=== PATIENT | female | born 1980 | race Caucasian/White ===

== ENCOUNTER 2025-03-16 23:20 | Emergency (ER) | payer MEDICAID, SELFPAY ==
[2025-03-16 23:42] VITALS: BP 135/88; PULSE 70; RESP 16; TEMP 36.8; O2SAT 96; BMI 27.4
[2025-03-17 01:32] VITALS: BP 107/67; PULSE 64; RESP 18; TEMP 36.7; O2SAT 99
--- OUTSIDE RECORDS SUMMARY | 2025-03-17 01:53 | XMS_ITS | Data Portability ---
Author Organization [facility], Allergy Address [address] [place] [phone] Care Team Providers Care Nurse Executive Name Role Phone BERTRANDERELDA Primary Care Provider Assessment No assessment recorded. Plan of Treatment Reminders Order Date Submit Date Provider Last Modified By Organization Details Last Modified Time Details Appointments None record ed. Lab None record ed. Referral None record ed. Procedures None record ed. Surgeries None record ed. Imaging None record ed. Medication Orders None record ed. Patient TargetsNo targets recorded. Patient InstructionsNo instructions recorded. Reason for Referral None Reported. 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 Medical Equipment None Reported. Allergies Allergen ID Allergen Name Allergen Category Reaction Reaction Severity Criticality Documentation Date Start Date Code Code System Note Provider Name and Address Organization Details Recorded Time [id number] clindamyc in Not available Not available Not available Not available 01/31/2025 2582 RxNorm Letha fox [facility] 5 15:11:59 Medications Name Sig Start Date Stop Date Status Note LastModified by Organization Details LastModified Time amoxicillin 500 mg capsule TAKE ONE CAPSULE BY MOUTH THREE TIMES A DAY active Not Available Not Available Not Available prednisone 20 mg tablet TAKE 2 TABLETS BY MOUTH EVERY DAY FOR 5 DAYS active Not Available Not Available No t Available lorazepam 1 mg tablet TAKE 1/2 TAB TO 1 TAB EVERY 4 HOURS NEEDED FOR ANXIETY. active Not Available Not Available No t Available propranolol 20 mg tablet TAKE 1 TABLET UP TO THREE TIMES A DAY NEEDED active Not Available Not Available No t Available fluticasone propionate 50 mcg/actuatio n nasal spray,suspen dank USE 1 SPRAY EVERY DAY INTO EACH NOSTRIL FOR 30 DAYS FOR NASAL CONGESTION/ ALTERED SMELL active Not Available Not Available No t Available loratadine 10 mg tablet TAKE 1 TABLET EVERY DAY BY ORAL ROUTE FOR 30 DAYS, FOR ITCH/ALLERG IES. active Not Available Not Available No t Available mometasone 0.1 % topical cream APPLY A THIN LAYER TO THE FACE BY TOPICAL ROUTE ONCE DAILY, NO MORE THAN 7 DAYS active Not Available Not Available No t Available Ventolin HFA 90 mcg/actuatio n aerosol inhaler INHALE 2 PUFFS EVERY 4 HOURS BY INHALATION ROUTE NEEDED active Not Available Not Available No t Available escitalopram 5 mg tablet TAKE 1 TABLET DAILY (5 MG) FOR 7 DAYS, IF NO SIDE EFFECTS THEN INCREASE TO 2 TABLETS DAILY (10 MG). active Not Available Not Available No t Available Vitals Date Recorded Body height Body mass index (BMI) Body weight Provider Name and Address Organization Details Last Updated DateTime 01/31/2025 162.56 cm 28.7 kg/m2 07486.93 g Letha Hutson MA - [facility] 01/31/2025 15:11:38 Social History None recorded. Functional Status None recorded. Mental Status None recorded. Family History Nothing Reported. Medical History Condition Response Anxiety Y Depression Y Gynecological HistoryNo gynecological history recorded. Obstetrics History GPAL:G 0 P 0 0 0 0 Past Encounters Encounter ID Performer Location Encounter Start Date Encounter Closed Date Diagnosis/Indication Diagnosis SNOMED-CT Code Diagnosis ICD10 Code Diagnosis Note [id number] ABA ORTEGA MD [facility] [address] [phone] 01/31/2025 14:48:52 01/31/2025 16:07:11 Sensory disorder of smell and/or taste 3775624337 103 R43.9 44-year-ol d female, former smoker, presents today for evaluation of altered sense of smell and taste. She reports that she can still smell foods like coffee but they are not as strong as they used to be and she previously had a very acute sense of smell. Around that time she did have a chemical exposure. She tolerated nasal endoscopy to the level of the middle meatus and I did not see any polyps. Nasal mucosa is mildly congested. She is subjective ly noted some dryness I did recommend using saline. I also gave her some informatio n on smell retraining . If the sense of smell worsens or does not seem to improve or she develops any new symptoms I have recommende d reassessme nt and considerat ion of imaging, but that her smell is intact just diminished suggest that the nerve is functionin g. Health Concerns Section Related Observation LastModified by Organization Detai ls LastModified Time None Recorded Concern Status LastModified by Organization Details LastModified Time None Recorded Advance Directives Directive None Recorded Payers Insurance Date Sequence Insurance Name Policy Number Policy Pak Covered Member ID Pak Member ID Guarantor Name 01/31/2025 2 [facility] Marcy Ivey Kershaw [id number] Marcy Ivey Kershaw 01/31/2025 1 [facility] Marcy Ivey Kershaw [id number] Marcy Ivey Kershaw Notes Date Note Type Note Provider Name and Address Organization Details Recorded Time 01/31/2025 text/html 44 yo F presents for evaluationAltered sense of smell and tastePreviously had very acute sense of smellFirst noted several months agoHad a laundry/ bleach smell just before noted loss of smell end of April 2024some things can be stronger than otherscan tell difference between salt and sugar waternose is drystopped smokingcould not taste cigarettebreathing feels right in her chest, thought to be stress/anxiety relatedno asthma knownno heartburnno allergiessome headaches, menses relatednot always hydratedno vision changes ABA ORTEGA MD [address] [place] [address],[place] [address], [place], [phone], [place] - [facility] 01/31/2025 16:59:42 OBGyn Episode No OBEpisode recorded.
[2025-03-17 02:06] LABS: MANUAL DIFF FLAG NO
[2025-03-17 02:07] LABS: Hematocrit 38.6 % (37.0-47.0); Hemoglobin 13.5 g/dl (12.0-16.0); Imm Gran Abs Auto 0.08 X10*3/uL (0.00-0.03); Imm Gran Pct Auto 0.4 % (0.0-0.4); Lymphocytes Absolute Auto 1.4 X10*3/uL (1.2-4.9); Mean Corpuscular HGB Conc 35.0 g/dl (31.0-35.0); Mean Corpuscular Hemoglobin 28.8 pg (27.0-33.0); Mean Corpuscular Volume 82.5 fL (80.0-98.0); NRBC Abs Auto 0.000 X10*3/uL (0.0-0.012); NRBC Pct Auto 0.0 /100WBC (0.0-0.2); Platelet Count 367 X10*3/uL (160-400); Red Blood Count 4.68 X10*6/uL (4.20-5.50); White Blood Count 18.8 X10*3/uL (4.8-10.8)
[2025-03-17 02:12] LABS: Appearance Urine Clear; Glucose Urine UA Negative (Negative); PH 5.5 (5.0-9.0); Specific Gravity - Urine 1.010 (1.005-1.025); UMIC TRIGGER UACC YES
[2025-03-17 02:29] LABS: Alanine Aminotransferase 16 U/L (0-31); Albumin Level 4.6 g/dL (3.5-5.0); Alkaline Phosphatase 64 U/L (39-117); Anion Gap 14 (12-20); Aspartate Amino Transferase 20 U/L (5-31); Blood Urea Nitrogen 12 mg/dL (9-16); Calcium 9.0 mg/dL (8.4-10.2); Carbon Dioxide 22 mmol/L (22-29); Chloride 109 mmol/L (96-108); Creatinine Clr Calc Pharmacy 101.5; Estimated Glomerular Filt Rate > 60; Potassium 4.6 mmol/L (3.3-5.1); Sodium 140 mmol/L (135-145); Total Protein 7.4 g/dL (6.5-8.0)
--- NOTE | 2025-03-17 04:46 | ED.FEMALEGU ---
HPI - Female Genitourinary General Chief complaint: Urogenital-Female Stated complaint: UTI? Time Seen by Provider: 03/17/25 03:53 Source: patient Mode of arrival: ambulatory Limitations: no limitations History of Present Illness ED Provider: Dr. Rohini Huston HPI Narrative: Patient comes to the emergency room complaining of left-sided flank pain intermittently for couple of days. Patient states that she has been having UTI symptoms for several days and now believes it is moving more towards the left kidney area. Patient complaining of dysuria, nausea and episodes of diaphoresis. Patient states that she has had kidney stones in the past. Patient denies fever chills Related Data Previous Rx's ?Medication ?Instructions ?Recorded levofloxacin 500 mg tablet 500 mg PO DAILY #7 tabs 03/17/25 Allergies Allergy/AdvReac Type Severity Reaction Status Date / Time clindamycin Allergy Dizziness Verified 03/16/25 23:46 Review of Systems Review of Systems: Constitutional : No Weight loss, No Fever, No Chills, No Night Sweats, No Fatigue, No Malaise ENT/Mouth : No Hearing loss, No Ear Pain, No Nasal Congestion, No Sinus Pain, No Hoarseness, No sore throat, No Rhinorrhea, No Swallowing Difficulty Eyes: No Eye Pain, No Swelling, No Redness, No Foreign Body, No Discharge, No Vision Changes Cardiovascular : No Chest Pain, No SOB, No Dyspnea on Exertion, No Orthopnea, No Edema, No Palpitations Respiratory : No Cough, No Sputum, No Wheezing, No Smoke Exposure, No Dyspnea Gastrointestinal : No Nausea, No Vomiting, No Diarrhea, No Constipation, No abdominal Pain, No Hematochezia, No Melena Genitourinary : no irregular bleeding, complaining of dysuria, bladder spasming, left-sided flank pain Musculoskeletal : No joint pain, No Myalgias, No Joint Swelling Skin : No Skin Lesions, No rash Neuro : No Weakness, No Numbness, No Paresthesias, No Loss of Consciousness, No Dizziness, No Headache Psych : No Anxiety/Panic, No Depression, No SI/HI/AH/VH, No Social Issues, Heme/Lymph: No Bruising, No Bleeding,No Lymphadenopathy Endocrine : No Polyuria, No Polydipsia, No Temperature Intolerance [facility] Past Medical History Medical History (Updated 03/17/25 @ 05:22 by Rohini Huston MD) Anxiety Ureterolithiasis Social History Social History Smoked in Last 30 Days: No Use of substances other than those prescribed or required for medical reasons: No Advance Directives: No Do you have a plan to hurt others: No Plan Physical Exam Exam: Exam: Appearance: Alert. Oriented X3. No acute distress. Calm Eyes: Pupils equal, round and reactive to light. ENT: Pharynx normal. Neck: Normal inspection. Neck supple. No lymph nodes noted. No crepitus CVS: Normal heart rate and rhythm. Pulses normal. Normal S1 and S2 Respiratory: No respiratory distress. Breath sounds normal. No Wheezing. No rales Abdomen: Soft , tenderness to palpation in suprapubic area, no rebound or guarding, mild CVA tenderness on the left Skin: Skin warm and dry. Normal skin color. Normal skin turgor. Extremities: No lower extremity edema. No Lacerations. No Rash Neuro: Oriented X 3. No motor deficit. No sensory deficit. Moving all extremities. No slurred speech. CN 2 through 12 grossly intact Psych: calm, cooperative, normal affect Vital Signs: Vital Signs: Last Vital Signs Temp 98.1 F 03/17/25 01:32 Pulse 64 03/17/25 01:32 Resp 18 03/17/25 01:32 BP 107/67 03/17/25 01:32 Pulse Ox 99 03/17/25 01:32 O2 Del Method Room Air 03/17/25 01:32 BMI result Body Mass Index 27.4 Course Course Course Narrative: Patient is currently taking nitrofurantoin for a UTI for the last couple of days. Patient states that the urinary discomfort is gradually radiating towards the left flank. Patient reports flank pain, dysuria, hematuria, nausea and episodes of diaphoresis. Patient has had kidney stones in the past and states that the pain is very similar. Medications Administered Discontinued Medications Generic Name Dose Route Start Last Admin Trade Name Freq PRN Reason Stop Dose Admin Sodium Chloride 1,000 mls @ 999 mls/hr 03/17/25 04:00 03/17/25 04:07 Ns IV 03/17/25 05:00 999 mls/hr .Q1H1M PHILLIP Administration Ketorolac Tromethamine 30 mg 03/17/25 04:42 03/17/25 04:53 Ketorolac Tromethamine 30 Mg/Ml Vial IVPUSH 03/17/25 04:43 Not Given ONCE ONE Ondansetron HCl 4 mg 03/17/25 04:42 03/17/25 04:53 Ondansetron Hcl 4 Mg/2 Ml Vial IVPUSH 03/17/25 04:43 Not Given ONCE ONE Medical Decision Making Medical Decision Making [facility] Narrative: My interpretation of white blood cell count 18.8, normal chemistry, hCG negative. Urinalysis shows a small amount of blood, leukocyte esterase, no significant abnormality in patient's urine. However, patient's seems to be taking currently Macrobid. I was informed by the patient's nurse that the patient is too anxious to go to CAT scan. We do not know if she has a kidney stone. Patient is too anxious to take any antibiotics. Patient was offered multiple different medications to help her with the anxiety, patient is too anxious to take anxiolytic medications Patient's BUN and creatinine remained within normal limits, unlikely that the stone is causing any obstruction. Overall, CAT scan and IV antibiotics was offered, patient too anxious to do either 1. New antibiotics have been sent to the patient's pharmacy. Differential Diagnosis Differential Diagnoses: The differential diagnosis associated with the presentation includes (UTI, pyelonephritis, musculoskeletal pain, anxiety) Admission/Observation Consideration of admission/observation: Escalation of care including admission/observation considered Lab Data [facility] Lab Attestation statement: I reviewed the patient's lab results. 03/17/25 02:03 03/17/25 02:03 Labs: Lab Results 03/17/25 03/17/25 Range/Units 02:03 02:07 WBC 18.8 H (4.8-10.8) X10*3/uL RBC 4.68 (4.20-5.50) X10*6/uL Hgb 13.5 (12.0-16.0) g/dl Hct 38.6 (37.0-47.0) % MCV 82.5 (80.0-98.0) fL MCH 28.8 (27.0-33.0) pg MCHC 35.0 (31.0-35.0) g/dl RDW 14.5 (11.0-16.0) % Plt Count 367 (160-400) X10*3/uL MPV 9.7 (9.4-12.3) fL Immature Gran % (Auto) 0.4 (0.0-0.4) % Neut % (Auto) 87.4 H (45-73) % Lymph % (Auto) 7.3 L (20-40) % [place] % (Auto) 4.5 (2-11) % Eos % (Auto) 0.1 (0-4) % Baso % (Auto) 0.3 (0-2) % Lymph # (Auto) 1.4 (1.2-4.9) X10*3/uL [place] # (Auto) 0.9 (0.1-1.2) X10*3/uL Eos # (Auto) 0.0 (0.0-0.4) X10*3/uL Baso # (Auto) 0.1 (0.0-0.2) X10*3/uL Abs Immat Gran (auto) 0.08 H (0.00-0.03) X10*3/uL Absolute Neuts (auto) 16.4 H (2.0-8.3) x10*3/uL Absolute Nucleated RBC 0.000 (0.0-0.012) X10*3/uL Nucleated RBC % (auto) 0.0 (0.0-0.2) /100WBC Sodium 140 (135-145) mmol/L Potassium 4.6 (3.3-5.1) mmol/L Chloride 109 H (96-108) mmol/L Carbon Dioxide 22 (22-29) mmol/L Anion Gap 14 (12-20) BUN 12 (9-16) mg/dL Creatinine 0.73 (0.5-1.4) mg/dL Estim Creat Clear Calc 101.5 Estimated GFR > 60 Random Glucose 113 (60-115) mg/dL Calcium 9.0 (8.4-10.2) mg/dL Total Bilirubin 0.3 (0.0-1.0) mg/dL AST 20 (5-31) U/L ALT 16 (0-31) U/L Alkaline Phosphatase 64 (39-117) U/L Total Protein 7.4 (6.5-8.0) g/dL Albumin 4.6 (3.5-5.0) g/dL Beta HCG, Quant < 2 mIU/mL Urine Color Yellow Urine Appearance Clear Urine pH 5.5 (5.0-9.0) Ur Specific [place] 1.010 (1.005-1.025) Urine Protein Negative (Neg-Trace) mg/dL Urine Glucose (UA) Negative (Negative) mg/dL Urine Ketones Negative (Negative) mg/dL Urine Blood Small (1+) H (Negative) Urine Nitrite Negative (Negative) Ur Leukocyte Esterase Trace H (Negative) Urine RBC 3-5 H (0-2) /HPF Urine WBC 0-5 (0-5) /HPF Ur Squamous Epith Cells 3-5 (0-2) /HPF Urine Bacteria Trace (None Seen) Hyaline Casts 0-2 (0-2) /LPF Critical Care Time Critical Care Time Critical Care Time: Yes Total Critical Care Time: 45 Attestation: I have personally provided critical care time. Time includes review of lab data, radiology results, discussion with consultants, and monitoring for potential decompensation. Intervention performed as documented. Discharge Plan Discharge Clinical Impression: UTI (urinary tract infection), Anxiety Patient Disposition: Home, Self-Care Instructions: Urinary Tract Infection in Women (ED) Additional Instructions: It is possible that you may have a kidney stone. You declined a CAT scan. Please follow-up with your primary care physician . Please stop taking your current antibiotic and switch it to this new 1. This will help you clear up any infections if there is one present in your kidneys Prescriptions: New levofloxacin 500 mg tablet 500 mg PO DAILY Qty: 7 0RF Print Language: Maltese
[2025-03-17 05:40] VITALS: BP 107/67; PULSE 64; RESP 18; TEMP 36.7; O2SAT 99
== END 2025-03-17 05:41 | disposition home or self-care (01) ==
PROVIDERS: Emergency Provider Emergency Medicine; PCP Family Medicine
DX: N39.0 Urinary tract infection, site not specified (principal)
CPT/HCPCS: 36415; 80053; 81001; 84702; 85025; 96360; 96361; 99284